=== PATIENT | female | born 1945 | race Caucasian/White ===

== ENCOUNTER 2019-02-25 14:44 | Inpatient (IN) | payer MEDICARE ==
[2019-02-25] MEDS ORDERED: ONDANSETRON 4 MG/2 ML VIAL IVP STA (16:26)
[2019-02-25 16:44] LABS: HGB 14.3 gm/dL (11.4-16.0); MCH 30.7 pg (25.0-35.0); MCHC 31.9 g/dL (31.0-37.0); MCV 96.4 fL (80.0-100.0); Mean Platelet Volume 7.1; Platelet Count 309 k/uL (150-450); RBC 4.67 m/uL (3.80-5.40); WBC 18.2 k/uL (3.8-10.6)
[2019-02-25 16:52] LABS: Albumin 4.6 g/dL (3.5-5.0); Calcium 10.1 mg/dL (8.4-10.2); Potassium 4.3 mmol/L (3.5-5.1); Total Bilirubin 0.7 mg/dL (0.2-1.3); Total Protein 8.1 g/dL (6.3-8.2)
--- NOTE | 2019-02-25 16:59 | ED ---
Abdominal Pain HPI - General Source: patient, family, RN notes reviewed Mode of arrival: ambulatory Limitations: no limitations <Aquilino Camacho - Last Filed: 02/25/19 17:08> <Fabrizio Hernadez - Last Filed: 02/25/19 20:22> - General Chief Complaint: Abdominal Pain Stated Complaint: Abd pain, nausea Time Seen by Provider: 02/25/19 16:06 - History of Present Illness Initial Comments: This a 73-year-old female presents emergency Department chief complaint of abdominal pain, nausea vomiting dizziness. Patient states that she started developing upset stomach earlier today states that she had some diffuse pain that has now localized to left lower quadrant. She has been dry heaving and having some bile emesis. Patient reports no fever but complains of chills. No chest pain or shortness breath. Patient states when she was vomiting she is very dizzy. She states that this time that she ask she feels much improved she has no major symptoms other than mild nausea. No diarrhea no constipation no dysuria no hematuria denies any flank pain or history kidney stones. (Aquilino Camacho) - Related Data Home Medications Medication Instructions Recorded Confirmed Multivitamins, Thera [Multivitamin 1 tab PO DAILY 02/25/19 02/25/19 (formulary)] Potassium 99 mg PO DAILY 02/25/19 02/25/19 Allergies Allergy/AdvReac Type Severity Reaction Status Date / Time No Known Allergies Allergy Verified 02/25/19 16:20 Review of Systems ROS Other: All systems not noted in ROS Statement are negative. <Aquilino Camacho - Last Filed: 02/25/19 17:08> ROS Other: All systems not noted in ROS Statement are negative. <Fabrizio Hernadez - Last Filed: 02/25/19 20:22> ROS Statement: Those systems with pertinent positive or pertinent negative responses have been documented in the HPI. Past Medical History Past Medical History: No Reported History History of Any Multi-Drug Resistant Organisms: None Reported Additional Past Surgical History / Comment(s): lap band Past Psychological History: No Psychological Hx Reported Smoking Status: Never smoker Past Alcohol Use History: None Reported Past Drug Use History: None Reported <Aquilino Camacho - Last Filed: 02/25/19 17:08> General Exam Limitations: no limitations General appearance: alert, in no apparent distress Head exam: Present: atraumatic, normocephalic, normal inspection Eye exam: Present: normal appearance, PERRL, EOMI. Absent: scleral icterus, conjunctival injection, periorbital swelling ENT exam: Present: normal exam, normal oropharynx, mucous membranes moist, TM's normal bilaterally Neck exam: Present: normal inspection, full ROM. Absent: tenderness, m eningismus, lymphadenopathy Respiratory exam: Present: normal lung sounds bilaterally. Absent: respiratory distress, wheezes, rales, rhonchi, stridor Cardiovascular Exam: Present: regular rate, normal rhythm, normal heart sounds. Absent: systolic murmur, diastolic murmur, rubs, gallop, clicks GI/Abdominal exam: Present: soft, tenderness (Mild left lower quadrant tenderness), normal bowel sounds. Absent: distended, guarding, rebound, rigid Back exam: Absent: CVA tenderness (R), CVA tenderness (L) Neurological exam: Present: alert, oriented X3, CN II-XII intact, reflexes normal. Absent: motor sensory deficit Skin exam: Present: warm, dry, intact, normal color. Absent: rash <DedoeAquilino M - Last Filed: 02/25/19 17:08> General appearance: alert, in no apparent distress Head exam: Present: atraumatic, normocephalic, normal inspection Eye exam: Present: normal appearance, PERRL, EOMI. Absent: scleral icterus, conjunctival injection, periorbital swelling ENT exam: Present: normal exam, mucous membranes moist Neck exam: Present: normal inspection. Absent: tenderness, meningismus, lymphadenopathy Respiratory exam: Present: normal lung sounds bilaterally. Absent: respiratory distress, wheezes, rales, rhonchi, stridor Cardiovascular Exam: Present: regular rate, normal rhythm, normal heart sounds. Absent: systolic murmur, diastolic murmur, rubs, gallop, clicks GI/Abdominal exam: Present: soft, normal bowel sounds. Absent: distended, tenderness, guarding, rebound, rigid Extremities exam: Present: normal inspection, full ROM, normal capillary refill. Absent: tenderness, pedal edema, joint swelling, calf tenderness Back exam: Present: normal inspection Neurological exam: Present: alert, oriented X3, CN II-XII intact Psychiatric exam: Present: normal affect, normal mood Skin exam: Present: warm, dry, intact, normal color. Absent: rash <Fabrizio Hernadez - Last Filed: 02/25/19 20:22> Course Vital Signs 02/25/19 02/25/19 15:02 18:58 Temperature 97.5 F L Pulse Rate 64 102 H Respiratory 18 17 Rate Blood Pressure 139/64 137/56 O2 Sat by Pulse 96 95 Oximetry Medical Decision Making - Lab Data Result diagrams: 02/25/19 16:20 <Aquilino Camacho - Last Filed: 02/25/19 17:08> - Lab Data Result diagrams: 02/25/19 16:20 02/25/19 16:20 - Radiology Data Radiology results: report reviewed (CT of pelvis positive for left UVJ stone), image reviewed <Fabrizio Hernadez - Last Filed: 02/25/19 20:22> - Medical Decision Making 73 female the ER for evaluation presented today for evaluation regards to abdominal pain, patient is positive UVJ stone 3 mm positive UTI. Neurology was notified. Patient placed on antibiotics Resuscitation (Fabrizio Hernadez) - Lab Data Lab Results 02/25/19 02/25/19 02/25/19 Range/Units 16:20 16:20 16:20 WBC 18.2 H (3.8-10.6) k/uL RBC 4.67 (3.80-5.40) m/uL Hgb 14.3 (11.4-16.0) gm/dL Hct 45.0 (34.0-46.0) % MCV 96.4 (80.0-100.0) fL MCH 30.7 (25.0-35.0) pg MCHC 31.9 (31.0-37.0) g/dL RDW 13.0 (11.5-15.5) % Plt Count 309 (150-450) k/uL Neutrophils % (Manual) 91 % Band Neutrophils % 1 % Lymphocytes % (Manual) 7 % Monocytes % (Manual) 1 % Neutrophils # (Manual) 16.70 H (1.3-7.7) k/uL Lymphocytes # (Manual) 1.27 (1.0-4.8) k/uL Monocytes # (Manual) 0.18 (0-1.0) k/uL Nucleated RBCs 0 (0-0) /100 WBC Manual Slide Review Performed Large Platelets Present Sodium 142 (137-145) mmol/L Potassium 4.3 (3.5-5.1) mmol/L Chloride 106 (98-107) mmol/L Carbon Dioxide 24 (22-30) mmol/L Anion Gap 12 mmol/L BUN 22 H (7-17) mg/dL Creatinine 0.82 (0.52-1.04) mg/dL Est GFR (CKD-EPI)AfAm 83 (>60 ml/min/1.73 sqM) Est GFR (CKD-EPI)NonAf 72 (>60 ml/min/1.73 sqM) Glucose 169 H (74-99) mg/dL Lactic Ac Sepsis Rflx Plasma Lactic Acid Pasquale 2.7 H* (0.7-2.0) mmol/L Calcium 10.1 (8.4-10.2) mg/dL Total Bilirubin 0.7 (0.2-1.3) mg/dL AST 33 (14-36) U/L ALT 28 (9-52) U/L Alkaline Phosphatase 69 (38-126) U/L Troponin I (0.000-0.034) ng/mL Total Protein 8.1 (6.3-8.2) g/dL Albumin 4.6 (3.5-5.0) g/dL Amylase 60 (30-110) U/L Lipase 110 (23-300) U/L Urine Color Urine Appearance (Clear) Urine pH (5.0-8.0) Ur Specific [place] (1.001-1.035) Urine Protein (Negative) Urine Glucose (UA) (Negative) Urine Ketones (Negative) Urine Blood (Negative) Urine Nitrite (Negative) Urine Bilirubin (Negative) Urine Urobilinogen (<2.0) mg/dL Ur Leukocyte Esterase (Negative) Urine RBC (0-5) /hpf Urine WBC (0-5) /hpf Urine WBC Clumps (None) /hpf Urine Mucus (None) /hpf 02/25/19 02/25/19 02/25/19 Range/Units 16:20 16:50 16:55 WBC (3.8-10.6) k/uL RBC (3.80-5.40) m/uL Hgb (11.4-16.0) gm/dL Hct (34.0-46.0) % MCV (80.0-100.0) fL MCH (25.0-35.0) pg MCHC (31.0-37.0) g/dL RDW (11.5-15.5) % Plt Count (150-450) k/uL Neutrophils % (Manual) % Band Neutrophils % % Lymphocytes % (Manual) % Monocytes % (Manual) % Neutrophils # (Manual) (1.3-7.7) k/uL Lymphocytes # (Manual) (1.0-4.8) k/uL Monocytes # (Manual) (0-1.0) k/uL Nucleated RBCs (0-0) /100 WBC Manual Slide Review Large Platelets Sodium (137-145) mmol/L Potassium (3.5-5.1) mmol/L Chloride (98-107) mmol/L Carbon Dioxide (22-30) mmol/L Anion Gap mmol/L BUN (7-17) mg/dL Creatinine (0.52-1.04) mg/dL Est GFR (CKD-EPI)AfAm (>60 ml/min/1.73 sqM) Est GFR (CKD-EPI)NonAf (>60 ml/min/1.73 sqM) Glucose (74-99) mg/dL Lactic Ac Sepsis Rflx Y Plasma Lactic Acid [place] (0.7-2.0) mmol/L Calcium (8.4-10.2) mg/dL Total Bilirubin (0.2-1.3) mg/dL AST (14-36) U/L ALT (9-52) U/L Alkaline Phosphatase (38-126) U/L Troponin I <0.012 (0.000-0.034) ng/mL Total Protein (6.3-8.2) g/dL Albumin (3.5-5.0) g/dL Amylase (30-110) U/L Lipase (23-300) U/L Urine Color Yellow Urine Appearance Turbid H (Clear) Urine pH 5.5 (5.0-8.0) Ur Specific [place] 1.021 (1.001-1.035) Urine Protein 1+ H (Negative) Urine Glucose (UA) Negative (Negative) Urine Ketones 2+ H (Negative) Urine Blood Large H (Negative) Urine Nitrite Negative (Negative) Urine Bilirubin Negative (Negative) Urine Urobilinogen <2.0 (<2.0) mg/dL Ur Leukocyte Esterase Large H (Negative) Urine RBC >182 H (0-5) /hpf Urine WBC >182 H (0-5) /hpf Urine WBC Clumps Many H (None) /hpf Urine Mucus Moderate H (None) /hpf - EKG Data EKG Comments: EKG performed at 15:41 normal sinus rhythm at 62 MD 158 QRS 78 QT/QTC 452/458 (Aquilino Camacho) Disposition <Aquilino Camacho - Last Filed: 02/25/19 17:08> Is patient prescribed a controlled substance at d/c from ED?: No <Fabrizio Hernadez - Last Filed: 02/25/19 20:22> Clinical Impression: Abdominal pain, Ureterolithiasis, UTI (urinary tract infection) Disposition: ADMITTED IP TO THIS HOSP Condition: Fair Referrals: None,Stated [Primary Care Provider] - 1-2 days
[2019-02-25 17:09] LABS: Appearance,Urine Turbid (Clear); Bilirubin,Urine Negative (Negative); Blood,Urine Large (Negative); Color,Urine Yellow; Glucose,Urine (UA) Negative (Negative); Ketones,Urine 2+ (Negative); Leukocyte Esterase,Urine Large (Negative); Mucus,Urine Moderate /hpf; Nitrite,Urine Negative (Negative); PH, Urine 5.5 (5.0-8.0); Protein,Urine 1+ (Negative); RBC,Urine >182 /hpf (0-5); Specific Gravity,Urine 1.021 (1.001-1.035); Urobilinogen,Urine <2.0 mg/dL (<2.0)
[2019-02-25 17:56] LABS: Band Neutrophils % 1 %; Lymphocytes # (M) 1.27 k/uL (1.0-4.8); Monocytes # (M) 0.18 k/uL (0-1.0); Neutrophils % (M) 91 %; Nucleated Red Blood Cells 0 /100 WBC (0-0); Total Cells Counted 100
[2019-02-25 17:57] LABS: Large Platelets Present
--- NOTE | 2019-02-25 18:28 | CT ---
EXAMINATION TYPE: CT abdomen pelvis w con DATE OF EXAM: 02/25/2019 COMPARISON: None HISTORY: Left lower quadrant abdominal pain and nausea. CT DLP: 1199 mGycm Automated exposure control for dose reduction was used. TECHNIQUE: Helical acquisition of images was performed from the lung bases through the pelvis. CONTRAST: Performed without Oral Contrast and with IV Contrast, patient injected with 100ml mL of Iso parker 300. FINDINGS: LUNG BASES: No acute process. LIVER/GB: No significant abnormality is appreciated. PANCREAS: No significant abnormality is seen. SPLEEN: No significant abnormality is seen. ADRENALS: No significant abnormality is seen. KIDNEYS: 1) There are prominent bilateral parapelvic cysts, particularly on the left. 2) There is an asymmetric nephrogram, with delayed excretion on the ipsilateral left. There is an associated 3 mm ca lcification at the left ureteropelvic junction, associated with mild plus left hydronephrosis and dil ation of the upper collecting system, consistent with mild left obstructive uropathy. No other calcif ications in the kidneys or ureters or bladder. FREE AIR: No free air is visualized. RETROPERITONEAL ADENOPATHY: None visualized REPRODUCTIVE ORGANS: 1) No definite acute process. 2) Bilateral intrauterine pigtail catheter prosthe ses seen within the endometrial cavity of the uterine fundus. URINARY BLADDER: No significant abnormality is seen. PELVIC ADENOPATHY: None visualized. OSSEOUS STRUCTURES: No significant abnormality is seen. VASCULATURE: No acute findings. BOWEL: 1) Gastric band with catheter is present, with the catheter looped I in subdiaphragmatic pos ition on the left and with the catheter not appearing to be definitely connected with the port. [place] ter tip lies just deep to the anterior abdominal wall musculature in the left subcostal position ante riorly, with the subcutaneous port lying 4 cm caudally. 2) The colon is all right-sided, congenital variant of normal anatomy. There is no diverticulitis, bu t sigmoid diverticula noted. IMPRESSION: 1. MILD PLUS OBSTRUCTIVE LEFT UROPATHY SECONDARY TO 3 MM LEFT UPJ CALCIFICATION. 2. GASTRIC LAP BAND CATHETER DETACHMENT.
[2019-02-25] MEDS ORDERED: diphenhydrAMINE 50 MG/ML 1 ML VIAL IVP ONE (20:11)
[2019-02-25] MEDS ORDERED: LORazepam 2 MG/ML INJ IV STA (20:13)
[2019-02-25] MEDS ORDERED: SODIUM CHLORIDE 0.9% 1,000 ML IV SCH (20:15)
[2019-02-25] MEDS ORDERED: DEXTROSE 5% IV ONE ×2 (20:30)
[2019-02-25] MEDS ORDERED: ACETYLCYSTEINE IV ONE ×2 (20:30)
[2019-02-25] MEDS ORDERED: WATER IV ONE ×2 (20:30)
[2019-02-25] MEDS ORDERED: ACETYLCYSTEINE IV 4,000 MG in DEXTROSE 5% IN WATER 500 ML IV ONE ×2 (21:30)
[2019-02-25] MEDS: SODIUM CHLORIDE 0.9% 500 ML 500 ML IV SCH ×2 (22:26→23:53)
[2019-02-26] MEDS ORDERED: DEXTROSE 5% IV ONE ×2 (01:11)
[2019-02-26] MEDS ORDERED: WATER IV ONE ×2 (01:11)
[2019-02-26] MEDS ORDERED: ACETYLCYSTEINE IV ONE ×2 (01:11)
[2019-02-26 05:46] VITALS: RESP 18; BMI 35.2
[2019-02-26] MEDS ORDERED: ENOXAPARIN 40 MG/0.4 ML SYRINGE SQ SCH (09:00)
[2019-02-26 09:14] VITALS: TEMP 97.7
[2019-02-26 11:08] LABS: Basophils % (A) 0 %; Eosinophils # (A) 0.2 k/uL (0-0.7); Eosinophils % (A) 2 %; HCT 37.5 % (34.0-46.0); HGB 12.1 gm/dL (11.4-16.0); Lymphocytes # (A) 1.3 k/uL (1.0-4.8); Lymphocytes % (A) 13 %; MCH 31.3 pg (25.0-35.0); MCHC 32.3 g/dL (31.0-37.0); MCV 96.9 fL (80.0-100.0); Mean Platelet Volume 7.2; Monocytes # (A) 0.3 k/uL (0-1.0); Monocytes % (A) 3 %; Neutrophils # (A) 8.6 k/uL (1.3-7.7); Neutrophils % (A) 81 %; Platelet Count 265 k/uL (150-450); RBC 3.87 m/uL (3.80-5.40); WBC 10.6 k/uL (3.8-10.6)
--- NOTE | 2019-02-26 11:08 | US ---
EXAMINATION TYPE: US kidneys/renal and bladder DATE OF EXAM: 02/26/2019 COMPARISON: CT from yesterday CLINICAL HISTORY: L kidney stone, +UTI. Kidney stones, UTI, exam done portable. EXAM MEASUREMENTS: Right Kidney: 10.0 x 5.0 x 4.9 cm Left Kidney: 11.3 x 5.4 x 4.6 cm Right Kidney: 2.6 x 1.4 x 3.1cm hypoechoic area mid pole Left Kidney: dilated renal pelvis, 3.8 x 2.4 x 3.6cm complex cystic area superior pole Bladder: wnl Bilateral Jets seen: yes There is cortical thinning in right kidney. Central hypoechoic area corresponds to simple parapelvic cysts on recent CT. No hydronephrosis. Bladder is within normal limits. Increased cortical echogenicity left kidney. Redemonstration of slightly lobulated otherwise thin wal led nearly 4 cm cyst upper pole of the left kidney. Prominent central parapelvic cyst left kidney wit h presumed persistent mild left-sided hydronephrosis. IMPRESSION: Suspect stable mild left-sided hydronephrosis due to obstructing proximal ureter calculus . Simple central parapelvic cysts bilaterally makes ultrasound evaluation suboptimal.
[2019-02-26 12:34] VITALS: BP 139/83; PULSE 79
[2019-02-26] MEDS ORDERED: LEVOFLOXACIN 500 MG TAB PO SCH (13:00)
--- NOTE | 2019-02-26 13:57 | HP ---
HISTORY AND PHYSICAL CHIEF COMPLAINT: Left sided abdominal pain. 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 She started to have fairly severe pain in the left side of the abdomen going into the left lower quadrant for one day. Pain became quite severe and she developed nausea and vomiting. She came to emergency room, she was found to have a left ureteral calculus. She has never had calculi before. She has been in excellent health and is not taking any medications. Pain has diminished significantly over the last few hours. REVIEW OF SYSTEMS: She has had no headaches, CVAs, TIAs, neurologic deficits or changes, change in vision or hearing, chest pain, shortness of breath, no cough hemoptysis, asthma, heart disease, hypertension, palpitations, orthopnea, PND, hematemesis, melena, hematochezia, jaundice, renal failure, dysuria, frequency, urgency, hematuria, incontinence, etc. She is not diabetic. PAST MEDICAL HISTORY, FAMILY HISTORY, PERSONAL AND SOCIAL HISTORIES: Unremarkable and noncontributory, otherwise. Surgically, she has had a lap band many years ago, but she has had no allergies and she is on no medication. She does not smoke. She does not drink. She has a negative family history. Laboratory studies in the emergency room reveal that she has a urinary tract infection as well. PHYSICAL EXAMINATION: Blood pressure 145/83 with a pulse of 66, respirations 29, and she is afebrile. In general she appeared to be slightly overweight, in no acute distress. Skin color is normal, skin is warm and dry. Lymph nodes not enlarged. Head, ears, eyes, nose, mouth, and throat were normal. Neck veins are not distended. Thyroid is not enlarged. Chest is clear. The cardiac exam is normal. The abdomen is soft and not particularly tender and there are no masses or visceromegaly. Extremities are normal. Flanks are nontender. Neurologically, she is intact. She is admitted to the hospital with diagnoses: 1. Left ureteral calculus, probably passed. 2. Urinary tract infection. PLAN: 1. Bed rest. 2. IV fluids. 3. Analgesics. 4. Strain urine. 5. Ultrasound. 6. Probably home later today on antibiotics and followed as outpatient. MMODL / IJN: [id number] /
--- NOTE | 2019-02-26 14:43 | PN ---
PROGRESS NOTE CHIEF COMPLAINT: Left ureteral calculus. HISTORY OF PRESENT ILLNESS: This lady is doing well this morning. The pain is gone. Urine is being strained. REVIEW OF SYSTEMS: She has had no fever, chills, abdominal pain, flank pain, etc. PHYSICAL EXAM: Abdomen is soft, nontender and flanks are nontender. IMPRESSION: Left ureteral calculus, probably passed. PLAN: Will probably send her home today. Will obtain an ultrasound of the kidneys first. MMODL / IJN: [id number] /
--- NOTE | 2019-02-26 19:51 | DS ---
DISCHARGE SUMMARY CHIEF COMPLAINT: Left-sided flank and abdominal pain. HISTORY OF PRESENT ILLNESS AND PHYSICAL EXAMINATION: Details of this lady's history and physical can be found in the initial workup. LABORATORY STUDIES: While she was in the hospital she had laboratory studies, details of which can be found in the laboratory section of her chart. COURSE IN THE HOSPITAL: After admission she was placed on bedrest, started on intravenous fluids and analgesics. Shortly after she was admitted, the pain disappeared. She had an ultrasound which suggested that there may still be a partial obstruction and some mild hydronephrosis. It was felt that she could go home, and she will be sent on Levaquin because it looks as though she has a urinary tract infection. She will be seen in the office in a day or two and followed closely with her signs and symptoms as well as probable repeat ultrasound. FINAL DIAGNOSES: 1. Left ureteral calculus. 2. Urinary tract infection. OPERATIONS: None. CONSULTATIONS: None. She is improved. RICKY / LARSN: [id number] /
== END 2019-02-26 14:29 | disposition home or self-care (01) | DRG 690 ==
LOC: EC 14:44 → 4MS4W 20:16 → 6PED 02-26 04:28
PROVIDERS: ADMIT Family Medicine; ATTEND Family Medicine
DX: N39.0 Urinary tract infection, site not specified (principal); N20.1 Calculus of ureter; Z98.84 Bariatric surgery status; E66.3 Overweight; Z68.39 Body mass index [BMI] 39.0-39.9, adult
CPT/HCPCS: 36415; 74177; 76770; 80053; 81001; 82150; 83605; 83690; 84484; 85025; 87086; 93005; 96361; 96365; 96375; 99285

== ENCOUNTER → 2019-03-13 | Outpatient (CLI) | payer MEDICARE ==
--- NOTE | 2019-03-14 07:20 | US ---
EXAMINATION TYPE: US abdomen comp/pelvis limited DATE OF EXAM: 03/13/2019 COMPARISON: US, CT CLINICAL HISTORY: LUQ abd pain R10.12, N20.1 L ureteral calculus. Palpable from lap/band surgery. EXAM MEASUREMENTS: Liver Length: 14.5 cm Gallbladder Wall: 0.2 cm CBD: 0.5 cm Spleen: 8.8 cm Right Kidney: 9.5 x 5.2 x 4.3 cm Left Kidney: 11.6 x 6.1 x 5.3 cm Post Void Residual: 10.8 mL Pancreas: Within normal limits Liver: There is increased echogenicity of the hepatic parenchyma with diminished visualization of th e portal triads most commonly relating to hepatic steatosis and limiting evaluation for underlying he patic masses. Probable focal fatty sparing is seen near gallbladder =3.4 x 1.3 x 0.6cm. This is hypoe choic and in a typical location for focal fatty sparing. Gallbladder: wnl CBD: wnl Spleen: wnl Right Kidney: possible parapelvic cyst vs. extrarenal pelvis = 1.5 x 1.4 x 1.1cm is noted at renal h ilum. Cortical renal thinning is seen. Left Kidney: cluster of cysts noted superior pole = 3.9 x 3.6 x 2.7cm; mild hydronephrosis is noted with possible parapelvic cysts on image #[id number] Upper IVC: wnl Abd Aorta: wnl Bladder: wnl Bilateral Jets Seen yes Normal Post Void Residual (normal less than 50ml) yes Lap band access port is noted as round, mixed echo structure at patient's palpable anterior LUQ. IMPRESSION: 1. The patient's palpable abnormality in the left upper quadrant is noted to be over the area of the lap band port/tubing. No surrounding fluid collection is seen. 2. Hepatic steatosis and probable focal fatty sparing near the gallbladder fossa. 3. Benign-appearing bilateral renal cysts.
== END | disposition home or self-care (01) ==
LOC: RADUSWWP 12:26
PROVIDERS: ATTEND Family Medicine
DX: N28.1 Cyst of kidney, acquired (principal); K76.0 Fatty (change of) liver, not elsewhere classified; R19.02 Left upper quadrant abdominal swelling, mass and lump
CPT/HCPCS: 76700; 76857

== ENCOUNTER 2019-04-19 11:55 | Inpatient (IN) | payer MEDICARE ==
[2019-04-19 12:45] LABS: HCT 40.8 % (34.0-46.0); HGB 14.1 gm/dL (11.4-16.0); MCH 32.3 pg (25.0-35.0); MCHC 34.6 g/dL (31.0-37.0); MCV 93.4 fL (80.0-100.0); Mean Platelet Volume 7.1; Platelet Count 306 k/uL (150-450); RBC 4.37 m/uL (3.80-5.40); RDW 12.6 % (11.5-15.5); WBC 14.2 k/uL (3.8-10.6)
[2019-04-19] MEDS ORDERED: KETOROLAC 30 MG/ML 1 ML VIAL IVP STA (12:47)
[2019-04-19] MEDS ORDERED: ONDANSETRON 4 MG/2 ML VIAL IVP STA (12:48)
[2019-04-19] MEDS ORDERED: SODIUM CHLORIDE 0.9% 1,000 ML IV STA (12:55)
[2019-04-19 12:57] LABS: Albumin 4.1 g/dL (3.5-5.0); Calcium 9.3 mg/dL (8.4-10.2); Potassium 3.9 mmol/L (3.5-5.1); Total Bilirubin 0.6 mg/dL (0.2-1.3); Total Protein 7.4 g/dL (6.3-8.2)
--- NOTE | 2019-04-19 13:41 | CT ---
EXAMINATION TYPE: CT abdomen pelvis wo con DATE OF EXAM: 04/19/2019 COMPARISON: Previous study dated 02/25/2019 HISTORY: Left sided pain with vomiting. Prior stone [address] DLP: 816.7 mGycm Automated exposure control for dose reduction was used. FINDINGS: There is a lap band in place. The lap band catheter extends to the anterior abdominal wall but does not appear to communicate with the lap band port. There is some atelectatic change present at the lung bases. There is no pleural or pericardial fluid. The heart is not enlarged. There is a [id number] sliding hiatal hernia. Within the abdomen, the liver is normal in size. The spleen and gallbladder are normal. Both adrenal glands are normal. The right kidney is unremarkable. There is a 3.3 cm cyst in the upper pole of the left kidney. There is moderate stranding about the left kidney. There is mild left-sided hydronephrosis and hydroureter secondary to a 3 mm calculus in the lower left ureter. Limited views of the pancreas are unremarkable. There is no significant retroperitoneal, iliac or inguinal adenopathy. The bladder is unremarkable. There is an IUCD present within the uterus. There are scattered diverticula present throughout the sigmoid colon. There is no radiographic eviden ce of diverticulitis. The appendix is unremarkable. There may be some thickening of the transverse co emily as well as the left side of the colon. Small bowel loops are normal in caliber. There is a periumbilical hernia containing fat only with a 12 mm mouth. There is no free fluid and no free air identified. There is degenerative disc disease, hypertrophic spondylosis and facet arthropathy within the spine. IMPRESSION: 1. 3 MM CALCULUS IN THE LOWER LEFT URETER CAUSING MILD LEFT-SIDED HYDRONEPHROSIS AND HYDROURETER. 2. THE PATIENT'S LAP BAND CATHETER APPEARS TO BE UNATTACHED TO THE LAP BAND PORT. 3. MODERATE HIATAL HERNIA. 4. 3.3 CM LEFT UPPER POLE RENAL CYST. 5. UNCOMPLICATED DIVERTICULOSIS OF THE SIGMOID COLON. 6. MILD THICKENING OF THE TRANSVERSE AND LEFT SIDE OF THE COLON. PLEASE CORRELATE FOR COLITIS. 7. PERIUMBILICAL HERNIA CONTAINING FAT ONLY. 8. DEGENERATIVE CHANGES WITHIN THE SPINE.
[2019-04-19 14:36] LABS: Amorphous Sediment,Urine Occasional /hpf; Hyaline Casts,Urine 2 /lpf (0-2); Mucus,Urine Many /hpf; RBC,Urine 23 /hpf (0-5); Squamous Epithelial Cell,Urine 4 /hpf (0-4); WBC,Urine >182 /hpf (0-5)
[2019-04-19 14:39] LABS: Color,Urine Yellow
[2019-04-19 14:40] LABS: Appearance,Urine Turbid (Clear); Bilirubin,Urine Negative (Negative); Glucose,Urine (UA) Negative (Negative); Ketones,Urine Trace (Negative); Protein,Urine Trace (Negative); Specific Gravity,Urine 1.012 (1.001-1.035)
[2019-04-19 14:41] LABS: Blood,Urine Small (Negative); Leukocyte Esterase,Urine Large (Negative); Nitrite,Urine Negative (Negative); Urobilinogen,Urine 0.2 mg/dL (<2.0)
[2019-04-19] MEDS ORDERED: cefTRIAXone IN SWFI 1,000 MG/10 ML SYRINGE IVP STA (14:51)
[2019-04-19] MEDS ORDERED: NALOXONE 0.4 MG/ML 1 ML VIAL IV PRN (15:32)
[2019-04-19] MEDS ORDERED: KETOROLAC 30 MG/ML 1 ML VIAL IVP PRN (15:32)
[2019-04-19] MEDS ORDERED: MORPHINE SULFATE 2 MG/ML SYRINGE IV PRN (15:32)
[2019-04-19] MEDS ORDERED: ONDANSETRON 4 MG/2 ML VIAL IVP PRN (15:32)
--- NOTE | 2019-04-19 15:32 | ED ---
General Adult HPI - General Chief complaint: Abdominal Pain Stated complaint: poss kidney or bladder infection Time Seen by Provider: 04/19/19 12:16 Source: patient, RN notes reviewed Mode of arrival: ambulatory Limitations: no limitations - History of Present Illness Initial comments: 73-year-old female with a past medical history of asthma, kidney stones presents to the emergency department for left lower abdominal pain. Patient states this started this morning. States it is sharp in nature. 6 weeks ago patient was diagnosed with a left-sided UPJ 3 mm stone and prescribed Levaquin. She states her symptoms had completely resolved at that time. She had a negative urine culture. However started to have left lower quadrant pain today. Does admit to nausea and vomiting with this. Denies fevers or chills. Denies any back pain.Patient has no other complaints at this time including shortness of breath, chest pain, abdominal pain, nausea or vomiting, headache, or visual changes. - Related Data Home Medications Medication Instructions Recorded Confirmed Multivitamins, Thera [Multivitamin 1 tab PO DAILY 02/25/19 02/25/19 (formulary)] Potassium 99 mg PO DAILY PRN 02/25/19 02/26/19 Melatonin 3 mg PO HS PRN 02/26/19 02/26/19 Previous Rx's Medication Instructions Recorded Levofloxacin [Levaquin] 500 mg PO Q24H #10 tab 02/26/19 Allergies Allergy/AdvReac Type Severity Reaction Status Date / Time No Known Allergies Allergy Verified 04/19/19 12:02 Review of Systems ROS Statement: Those systems with pertinent positive or pertinent negative responses have been documented in the HPI. ROS Other: All systems not noted in ROS Statement are negative. Past Medical History Past Medical History: Asthma Additional Past Medical History / Comment(s): psoriasis History of Any Multi-Drug Resistant Organisms: None Reported Additional Past Surgical History / Comment(s): lap band Past Anesthesia/Blood Transfusion Reactions: No Reported Reaction Past Psychological History: No Psychological Hx Reported Smoking Status: Never smoker Past Alcohol Use History: None Reported Past Drug Use History: None Reported - Past Family History Sister(s) Family Medical History: Cancer, Diabetes Mellitus Brother(s) Family Medical History: Diabetes Mellitus Mother Family Medical History: Diabetes Mellitus Sister 2 Family Medical History: Pulmonary Embolus General Exam Limitations: no limitations General appearance: alert, in no apparent distress Head exam: Present: atraumatic, normocephalic, normal inspection Eye exam: Present: normal appearance, PERRL, EOMI. Absent: scleral icterus, conjunctival injection, periorbital swelling ENT exam: Present: normal exam, mucous membranes moist Neck exam: Present: normal inspection, full ROM. Absent: tenderness, meningismus, lymphadenopathy Respiratory exam: Present: normal lung sounds bilaterally. Absent: respiratory distress, wheezes, rales, rhonchi, stridor Cardiovascular Exam: Present: regular rate, normal rhythm, normal heart sounds. Absent: systolic murmur, diastolic murmur, rubs, gallop, clicks GI/Abdominal exam: Present: soft, normal bowel sounds. Absent: distended, tenderness, guarding, rebound, rigid Back exam: Absent: CVA tenderness (R), CVA tenderness (L) Psychiatric exam: Present: normal affect, normal mood Course Vital Signs 04/19/19 12:02 Temperature 97.7 F Pulse Rate 85 Respiratory 18 Rate Blood Pressure 141/79 O2 Sat by Pulse 96 Oximetry Medical Decision Making - Medical Decision Making 73-year-old female with a past medical history of asthma, kidney stones presents to the emergency department for left lower abdominal pain. Patient states this started this morning. States it is sharp in nature. 6 weeks ago patient was diagnosed with a left-sided UPJ 3 mm stone and prescribed Levaquin. She states her symptoms had completely resolved at that time. She had a negative urine culture. However started to have left lower quadrant pain today. No CVA tenderness. Basic labs were obtained and does show a white blood cell count of 14.2. CMP unremarkable. Urine does show greater than 182 white blood cells with many white blood cell clumps and [address] abdomen and pelvis without contrast shows a 3 mm cut was in the left lower ureter causing mild left-sided hydronephrosis. There is also an incidental of lap band catheter appearing to be on attached to the LAP-BAND port. This case was discussed with Dr. Vasquez who excepts this admission, does not request for urology to be consulted. Patient will be started on Rocephin. Urine culture pending. Will be admitted with analgesic therapy. - Lab Data Result diagrams: 04/19/19 12:30 04/19/19 12:30 Lab Results 04/19/19 04/19/1904/19/19 Range/Units 12:30 12:30 14:15 WBC 14.2 H (3.8-10.6) k/uL RBC 4.37 (3.80-5.40) m/uL Hgb 14.1 (11.4-16.0) gm/dL Hct 40.8 (34.0-46.0) % MCV 93.4 (80.0-100.0) fL MCH 32.3 (25.0-35.0) pg MCHC 34.6 (31.0-37.0) g/dL RDW 12.6 (11.5-15.5) % Plt Count 306 (150-450) k/uL Sodium 138 (137-145) mmol/L Potassium 3.9 (3.5-5.1) mmol/L Chloride 103 (98-107) mmol/L Carbon Dioxide 23 (22-30) mmol/L Anion Gap 12 mmol/L BUN 19 H (7-17) mg/dL Creatinine 0.96 (0.52-1.04) mg/dL Est GFR (CKD-EPI)AfAm 68 (>60 ml/min/1.73 sqM) Est GFR (CKD-EPI)NonAf 59 (>60 ml/min/1.73 sqM) Glucose 127 H (74-99) mg/dL Calcium 9.3 (8.4-10.2) mg/dL Total Bilirubin 0.6 (0.2-1.3) mg/dL AST 34 (14-36) U/L ALT 25 (9-52) U/L Alkaline Phosphatase 56 (38-126) U/L Total Protein 7.4 (6.3-8.2) g/dL Albumin 4.1 (3.5-5.0) g/dL Urine Color Yellow Urine Appearance Turbid H (Clear) Urine pH 5.0 (5.0-8.0) Ur Specific [place] 1.012 (1.001-1.035) Urine Protein Trace H (Negative) Urine Glucose (UA) Negative (Negative) Urine Ketones Trace H (Negative) Urine Blood Small (Negative) Urine Nitrite Negative (Negative) Urine Bilirubin Negative (Negative) Urine Urobilinogen 0.2 (<2.0) mg/dL Ur Leukocyte Esterase Large H (Negative) Urine RBC 23 H (0-5) /hpf Urine WBC >182 H (0-5) /hpf Urine WBC Clumps Many H (None) /hpf Ur Squamous Epith Cells 4 (0-4) /hpf Amorphous Sediment Occasional H (None) /hpf Hyaline Casts 2 (0-2) /lpf Urine Mucus Many H (None) /hpf Disposition Clinical Impression: Urinary tract infection, Ureterolithiasis, Leukocytosis Disposition: ADMITTED IP TO THIS [facility] Condition: Good Is patient prescribed a controlled substance at d/c from ED?: No Referrals: Jacek Vasquez MD [Primary Care Provider] - 1-2 days Time of Disposition: 15:31
[2019-04-19] MEDS: SODIUM CHLORIDE 0.9% 1,000 ML IV SCH (16:16)
[2019-04-19 17:35] VITALS: BMI 38.2
[2019-04-20] MEDS: SODIUM CHLORIDE 0.9% 1,000 ML IV SCH ×2 (05:01→20:22)
--- NOTE | 2019-04-20 14:46 | HP ---
HISTORY AND PHYSICAL CHIEF COMPLAINT: Left flank pain and urinary tract infection. HISTORY OF PRESENT ILLNESS: This lady's had a left ureteral calculus present for 6 weeks. The pain was getting worse and she was having chills and she came to emergency room. She developed increased pain with chills and came to emergency room where she was found to have a persistent left ureteral stone with hydronephrosis and urinary tract infection. She is also having nausea. She has had no hematuria. CT also demonstrated that her lap band fill tube had become disconnected. REVIEW OF SYSTEMS: She has had no headaches, neurologic problems, shortness of breath, chest pain, cough, vomiting, hematemesis, melena, hematochezia, jaundice, hepatitis, cirrhosis, renal failure, diabetes, etc. Past medical history, family history, personal and social histories, these are unremarkable and noncontributory otherwise. She is not really taking any medications at home. She is not allergic to anything. She had been on Levaquin. PHYSICAL EXAM: Temperature 97.7, pulse 85, respirations of 18, blood pressure 141/79. In general, she appeared to be obese and uncomfortable. Lymph nodes not enlarged. Head, ears, eyes, nose, mouth, and throat were normal. Neck veins not distended. Thyroid was enlarged. Chest is clear. Cardiac exam is normal. Abdomen is protuberant, soft, nontender. Lap band can be felt in the left upper quadrant. Extremities: Normal. Neurologically, she is intact. She is admitted to the hospital with diagnoses: 1. Partially obstructing left ureteral calculus present for 6 weeks. 2. Urinary tract infection. 3. Disconnected fill tube on lap band. 4. Obesity. PLAN: 1. Bed rest. 2. IV fluids. 3. Antibiotics. 4. Consult with Urology for an eventual lithotripsy unless this stone can be reached through the bladder. MMODL / IJN: [id number] /
--- NOTE | 2019-04-20 17:16 | PN ---
PROGRESS NOTE CHIEF COMPLAINT: Left renal calculus. HISTORY OF PRESENT ILLNESS: This lady is doing a bit better. She has not had a fever. The pain is diminished somewhat. PHYSICAL EXAM: Left flank is tender and she is cone tender in the left upper quadrant. Temperature is down. IMPRESSION: 1. Left distal ureteral calculus with partial obstruction. 2. Urinary tract infection. 3. Disconnected lap band fill tube. 4. Obesity. PLAN: 1. Continue with IV fluids and antibiotics as well as analgesics. 2. She has been seen by surgery. 3. Consult to see Urology for lithotripsy. It is possible that they will want to place stent in the meantime. MMODL / IJN: [id number] /
[2019-04-21] MEDS: SODIUM CHLORIDE 0.9% 1,000 ML IV SCH (08:36)
--- NOTE | 2019-04-21 09:35 | P.GSCN ---
History of Present Illness Consult date: 04/21/19 Reason for Consult: Left ureteral calculus History of present illness: The patient is a 73-year-old female who developed severe pain in the left lower quadrant associated with nausea and vomiting on 04/19. She denied any fever or chills. She said that she had some transient pain earlier in the week but it subsided. She presented to the emergency room or she was evaluated and noted have a white blood count of 14,200. Urinalysis showed pyuria and she was presumed to have a urinary tract infection and was started on antibiotics. Subsequent urine culture has grown greater than 100,000 colonies of mixed organisms consistent with skin and genital bryon. The patient has remained afebrile and her pain has resolved. Computed tomography scan of the abdomen and pelvis at the time of admission identified a small distal left ureteral calculus with mild hydronephrosis. I was asked to see the patient for further evaluation. The patient had originally been seen in the emergency room on 02/25. At that time she was noted to have what was described as a 3 mm calculus at the left ureteral pelvic junction. Left parapelvic cysts were noted on the computed tomography scan at that time. The patient's pain improved. She says that she didl strain her urine for a period of time but has no longer been doing this. She has no history of urolithiasis prior to this summer. A brother has had kidney stones. The patient denied any dysuria or hematuria at the time of admission. She says she's had occasional urinary tract infections but has not had one in several years. She said that she did not feel that she had an infection at the time of admission. Review of Systems - Constitutional Denies anorexia, Denies chills, Denies fever - Cardiovascular Denies shortness of breath - Gastrointestinal Denies abdominal pain, Denies change in bowel habits Past Medical History Past Medical History: Asthma Additional Past Medical History / Comment(s): psoriasis History of Any Multi-Drug Resistant Organisms: None Reported Additional Past Surgical History / Comment(s): lap band Past Anesthesia/Blood Transfusion Reactions: No Reported Reaction Smoking Status: Never smoker - Past Family History Sister(s) Family Medical History: Cancer, Diabetes Mellitus Brother(s) Family Medical History: Diabetes Mellitus Mother Family Medical History: Diabetes Mellitus Sister 2 Family Medical History: Pulmonary Embolus Medications and Allergies Home Medications Medication Instructions Recorded Confirmed Type No Known Home Medications 04/19/19 04/19/19 History Allergies Allergy/AdvReac Type Severity Reaction Status Date / Time No Known Allergies Allergy Verified 04/19/19 16:01 Surgical - Exam Vital Signs Temp Pulse Resp BP Pulse Ox 97.7 F 85 18 141/79 96 04/19/19 12:02 04/19/19 12:02 04/19/19 12:02 04/19/19 12:02 04/19/19 12:02 - General well developed, well nourished, no distress, obese - ENT no hearing loss - Neck no masses, no lymphadectomy - Respiratory normal respiratory effort - Abdomen Abdomen: soft, non tender, no organomegaly Results - Labs 04/19/19 12:30 04/19/19 12:30 Microbiology - Last 24 Hours (Table) 04/19/19 16:40 Blood Culture - Preliminary Blood No Growth after 24 hours 04/19/19 14:15 Urine Culture - Final Urine,Clean Catch - Imaging CT scan - abdomen: image reviewed (There is a less than 2 mm calculus in the distal left ureter near the level of the superior acetabulum. There is minimal hydronephrosis however the patient has left parapelvic cysts which could also mimic hydronephrosis.) Assessment and Plan (1) Ureteral calculus, left Narrative/Plan: The patient's pain at the time of admission appears to be related to a less than 2 mm calculus which has migrated from the region of the left ureteropelvic junction into the left distal ureter over the last 6 weeks. The patient does not have signs of an infection and her urine culture is consistent with urethral contamination. She had resolution of her abdominal pain shortly following admission and is currently comfortable. At this point the patient could be discharged and followed as an outpatient as statistically the likelihood of spontaneous passage of a stone the size and location is very high. I told the patient that she should continue to strain her urine as her calculus is very small and she probably pass it from the bladder with minimal discomfort. At this point I do not feel that placement of a double-J catheter or ureteroscopy w ith lithotripsy is necessary. Current Visit: Yes Status: Acute Code(s): N20.1 - CALCULUS OF URETER SNOMED Code(s): 00348457
[2019-04-21 12:34] VITALS: BP 123/60; PULSE 71; RESP 18; TEMP 97.7
--- NOTE | 2019-04-22 06:51 | DS ---
DISCHARGE SUMMARY CHIEF COMPLAINT: Left flank pain and dysuria. HISTORY OF PRESENT ILLNESS AND PHYSICAL EXAM: Details of this lady's history and physical can be found in the initial workup. LABORATORY STUDIES: While she was in the hospital she had laboratory studies, details of which can be found in the laboratory section of her chart. COURSE IN HOSPITAL: After admission, she was placed on bedrest, started intravenous fluids and antibiotics. The day after admission, her pain had nearly completely gone. Because the stone has been in place for several weeks, she was referred to Urology. She was seen and they felt nothing should be done at this time and that the stone was small and in the distal ureter and would likely enter the bladder soon. It was felt she could go home on her usual diet and activity. She will be seen in several days. FINAL DIAGNOSIS: Left ureteral calculus. OPERATIONS: None. CONSULTATIONS: Urology. She is improved. MMODL / IJN: [id number] /
== END 2019-04-21 12:50 | disposition home or self-care (01) | DRG 694 ==
LOC: EC 11:55 → 3NMEDONC 15:24
PROVIDERS: ADMIT Family Medicine; ATTEND Family Medicine
DX: N13.2 Hydronephrosis with renal and ureteral calculous obstruction (principal); E66.9 Obesity, unspecified; L40.9 Psoriasis, unspecified; J45.909 Unspecified asthma, uncomplicated; Z83.3 Family history of diabetes mellitus; Z80.9 Family history of malignant neoplasm, unspecified; Z82.49 Family history of ischemic heart disease and other diseases of the circulatory system; Z87.442 Personal history of urinary calculi
CPT/HCPCS: 36415; 74176; 80053; 81001; 85027; 87040; 87086; 96361; 96374; 96375; 99285

== ENCOUNTER → 2019-05-22 | Outpatient (CLI) | payer MEDICARE ==
--- NOTE | 2019-05-23 07:14 | US ---
EXAMINATION TYPE: US kidneys/renal and bladder DATE OF EXAM: 05/22/2019 COMPARISON: CT & US CLINICAL HISTORY: N20.1 Urethral calculus. Pt states h/o left renal calculus EXAM MEASUREMENTS: Right Kidney: 10.0 x 4.7 x 4.8 cm Left Kidney: 11.3 x 5.1 x 4.9 cm Right Kidney: Cortical thinning, Possible renal sinus cyst medial versus exophytic cortical cyst jordi uring 2.1 x 1.0 x 2.1 cm Left Kidney: Cyst with septations mid/lateral measuring 3.4 x 2.2 x 3.9 cm Bladder: wnl Bilateral Jets seen: No There is no evidence for hydronephrosis at this point in time. No nephrolithiasis is seen. The urina ry bladder is anechoic. Bilateral ureteral jets are not seen. IMPRESSION: Sonographic sequela of medical renal disease with bilateral cortical renal thinning and benign appear ing bilateral renal cysts. No hydronephrosis or nephrolithiasis seen on ultrasound.
== END | disposition home or self-care (01) ==
LOC: RADUSWWP 16:09
PROVIDERS: ATTEND Family Medicine
DX: N28.89 Other specified disorders of kidney and ureter (principal); N28.1 Cyst of kidney, acquired
CPT/HCPCS: 76770

== ENCOUNTER → 2019-06-12 | Outpatient (CLI) | payer MEDICARE ==
--- NOTE | 2019-06-16 10:44 | MM ---
Reason for exam: screening (asymptomatic). History: Patient is postmenopausal and is nulliparous. Family history of breast cancer in sister at age 40. Physical Findings: A clinical breast exam by your physician is recommended on an annual basis and results should be correlated with mammographic findings. MG 3D Screening Mammo W/Cad Bilateral CC and MLO view(s) were taken. There are scattered fibroglandular densities. There is no discrete abnormality. ASSESSMENT: Negative, BI-RAD 1 RECOMMENDATION: Routine screening mammogram of both breasts in 1 year.
== END | disposition home or self-care (01) ==
LOC: RADMAMWWP 15:08
PROVIDERS: ATTEND Family Medicine
DX: Z12.31 Encounter for screening mammogram for malignant neoplasm of breast (principal)
CPT/HCPCS: 77063; 77067

== ENCOUNTER 2020-05-24 10:25 | Emergency (ER) | payer MEDICARE ==
[2020-05-24 10:31] VITALS: RESP 18; TEMP 98.4
--- NOTE | 2020-05-24 10:38 | ED ---
Lower Extremity Injury HPI - General Chief Complaint: Extremity Injury, Lower Stated Complaint: knee injury Time Seen by Provider: 05/24/20 10:37 Source: patient, family Mode of arrival: wheelchair Limitations: no limitations - History of Present Illness Initial Comments: Patient is a 75-year-old female presenting to the emergency department with a chief complaint of right knee pain. Patient reports pain started about 3 days ago and is exacerbated with knee flexion. Patient reports the pain is also worse when weightbearing and has gradually improved over the last 2 days. She does report taking Tylenol to alleviate the symptoms. Patient also reports some calf pain as well. She denies any chest pain or shortness of breath. Denies unilateral leg swelling. Denies any direct trauma to the leg. States about 4 days ago she was cleaning her fridge and maybe overexerted herself but that is about the only reason she could think of that would cause the pain. - Related Data Previous Rx's Medication Instructions Recorded Ibuprofen [Motrin] 600 mg PO Q8HR PRN #30 tab 05/24/20 Allergies Allergy/AdvReac Type Severity Reaction Status Date / Time Penicillins AdvReac Nausea Verified 05/24/20 10:32 Review of Systems ROS Statement: Those systems with pertinent positive or pertinent negative responses have been documented in the HPI. ROS Other: All systems not noted in ROS Statement are negative. Past Medical History Past Medical History: Asthma Additional Past Medical History / Comment(s): psoriasis, kidney stones History of Any Multi-Drug Resistant Organisms: None Reported Past Surgical History: Tubal Ligation Additional Past Surgical History / Comment(s): lap band Past Anesthesia/Blood Transfusion Reactions: No Reported Reaction Past Psychological History: No Psychological Hx Reported Smoking Status: Never smoker Past Alcohol Use History: None Reported Past Drug Use History: None Reported - Past Family History Sister(s) Family Medical History: Cancer, Diabetes Mellitus Brother(s) Family Medical History: Diabetes Mellitus Mother Family Medical History: Diabetes Mellitus Sister 2 Family Medical History: Pulmonary Embolus General Exam Limitations: no limitations General appearance: alert, in no apparent distress, obese Head exam: Present: atraumatic, normocephalic, normal inspection Eye exam: Present: normal appearance, PERRL, EOMI Pupils: Present: normal accommodation ENT exam: Present: normal exam, normal oropharynx, mucous membranes moist, TM's normal bilaterally, normal external ear exam Neck exam: Present: normal inspection, full ROM. Absent: tenderness Respiratory exam: Present: normal lung sounds bilaterally. Absent: respiratory distress, wheezes, rales Cardiovascular Exam: Present: regular rate, normal rhythm, normal heart sounds Extremities exam: Present: normal inspection (Intermittent small bruising on the right knee and foot.), full ROM, tenderness (Very mild infrapatellar tenderness of the right knee.), normal capillary refill, calf tenderness (Positive Homans right leg.), other (+2 dorsalis pedis and posterior to because bilateral.). Absent: pedal edema, joint swelling Back exam: Present: normal inspection, full ROM. Absent: tenderness, CVA tenderness (R), CVA tenderness (L) Neurological exam: Present: alert, oriented X3 Psychiatric exam: Present: normal affect, normal mood Skin exam: Present: warm, dry, intact, normal color Course Vital Signs 05/24/20 05/24/20 05/24/20 10:26 11:31 12:00 Temperature 98.4 F Pulse Rate 91 Respiratory 18 18 18 Rate Blood Pressure 135/107 O2 Sat by Pulse 95 Oximetry 05/24/20 12:42 Temperature 98.4 F Pulse Rate 72 Respiratory 18 Rate Blood Pressure 156/78 O2 Sat by Pulse 96 Oximetry Medical Decision Making - Medical Decision Making Patient is 75-year-old female presenting to the emergency department with a chief complaint of right leg pain. On physical examination, patient does have access body habitus which made physical exam slightly difficult. She had a negative anterior drawer. Pain was mostly noticed on full flexion. Ultrasound Doppler performed reveals no signs of DVT. X-ray reveals osteoarthritic changes but no acute processes. She is otherwise neurovascularly intact. Holden wrap was applied. Strict return parameters were thoroughly discussed the patient was understanding and agreeable. She was advised to follow-up with senior it specialist if if symptoms not improved. Case discussed with physician. She was advised to alternate between Tylenol and Motrin for pain control. Disposition Clinical Impression: Right knee pain, Right calf pain Disposition: HOME SELF-CARE Condition: Stable Instructions (If sedation given, give patient instructions): Knee Pain (ED) Additional Instructions: Alternate between Tylenol and Motrin for pain control. Follow with her primary care physician. Return to emergency department if symptoms worsen. Prescriptions: Ibuprofen [Motrin] 600 mg PO Q8HR PRN #30 tab PRN Reason: Pain Is patient prescribed a controlled substance at d/c from ED?: No Referrals: Jacek Vasquez MD [Primary Care Provider] - 1-2 days Time of Disposition: 11:50
--- NOTE | 2020-05-24 11:25 | US ---
EXAMINATION TYPE: US venous doppler duplex LE RT DATE OF EXAM: 05/24/2020 10:44 AM COMPARISON: NONE CLINICAL HISTORY: r/o DVT, calf pain. SIDE PERFORMED: Right TECHNIQUE: The lower extremity deep venous system is examined utilizing real time linear array sonog pilar with graded compression, doppler sonography and color-flow sonography. VESSELS IMAGED: External Iliac Vein (EIV) Common Femoral Vein Deep Femoral Vein Greater Saphenous Vein * Femoral Vein Popliteal Vein Small Saphenous Vein * Proximal Calf Veins (* superficial vessels) Right Leg: Negative for deep venous thrombosis. Normal flow, compressibility, and vascular waveforms . IMPRESSION: No DVT of the right lower extremity.
--- NOTE | 2020-05-24 11:46 | XR ---
EXAMINATION TYPE: XR knee complete RT DATE OF EXAM: 05/24/2020 CLINICAL HISTORY: Right knee pain for 3 days. No known injury. TECHNIQUE: Three views of the right knee are obtained. COMPARISON: None. FINDINGS: There is no acute fracture/dislocation evident in right knee. There is severe tricompartm ental degenerative spurring. There is medial compartment joint space narrowing and sclerosis. Normal osseous mineralization. No supra patellar joint effusion. IMPRESSION: There is no acute fracture or dislocation in the right knee. Degenerative changes as abo ve.
[2020-05-24 12:43] VITALS: BP 156/78; PULSE 72
== END 2020-05-24 12:45 | disposition home or self-care (01) ==
LOC: EC 10:25
DX: S80.01XA Contusion of right knee, initial encounter (principal); S90.31XA Contusion of right foot, initial encounter; Z88.0 Allergy status to penicillin; X50.1XXA Overexertion from prolonged static or awkward postures, initial encounter
CPT/HCPCS: 99284